=== PATIENT | male | born 1965 ===

== ENCOUNTER 2021-10-27 17:27 | Emergency (ER) | payer SELFPAY ==
[~2021-10-27] VITALS: Ht 162.5 cm
[2021-10-27] MEDS ORDERED: CYCLOBENZAPRINE5 M3 PO (20:27)
[2021-10-27] MEDS ORDERED: NAPROSYN500 MG PO (20:27)
== END 2021-10-27 20:44 | disposition home or self-care (01) ==
LOC: ED 17:27
DX: M79.652 Pain in left thigh (principal)